=== PATIENT | female | born 1960 | race Caucasian/White ===

== ENCOUNTER → 2020-11-02 | Outpatient (CLI) | payer MEDICARE, OTHER ==
[~2020-11-02] MED LIST: ALLOPURINOL300 MG PO; AMLODIPINE BESYL5 MG PO; AMOX TR-K CLV1 EAC4 PO; ASPIRIN EC81 MG PO; CLOPIDOGREL75 MG PO; CYCLOBENZAPRINE5 MG PO; CYMBALTA60 MG PO; FENOFIBRATE160 MG PO; FLEXERIL 10 MG10 MG PO; GABAPENTIN300 MG PO; GLUCOPHAGE 500500 MG PO; HUMALOG100 UNIT/3 SQ; JARDIANCE10 MG PO; KENALOG 0.5% CR15 GM EXT; LIPITOR TAB 2020 MG PO; METOPROLOL TART50 MG PO; NITROGLYCERIN0.4 MG SL; PREDNISONE 10 M10 MG PO; TRULICITY1.5 MG/0.5 SQ; Voltaren Gel 1% TOP; ZESTRIL/PRINIVI10 MG PO
[2020-11-02 08:39] LABS: HEMOGLOBIN 17.4 gm/dl (12.3-15.3); RED BLOOD COUNT 5.46 M/UL (4.00-5.10); WHITE BLOOD COUNT 7.6 K/UL (4.5-11.0)
== END ==
LOC: LAB 08:13
PROVIDERS: Physician Assistant
DX: Z13.29 Encounter for screening for other suspected endocrine disorder (principal); E53.8 Deficiency of other specified B group vitamins; E55.9 Vitamin D deficiency, unspecified; E78.5 Hyperlipidemia, unspecified; E11.65 Type 2 diabetes mellitus with hyperglycemia; I10 Essential (primary) hypertension
CPT/HCPCS: 36415; 80053; 80061; 82043; 82570; 82607; 82746; 83036; 84439; 84443; 85025

== ENCOUNTER 2020-11-17 13:28 | Inpatient (IN) | payer MEDICARE, OTHER ==
[~2020-11-17] VITALS: Ht 167.6 cm; Wt 117.9 kg
[~2020-11-17 13:28] MED LIST changes: -ALLOPURINOL300 MG PO; -AMLODIPINE BESYL5 MG PO; -AMOX TR-K CLV1 EAC4 PO; -ASPIRIN EC81 MG PO; -CLOPIDOGREL75 MG PO; -CYCLOBENZAPRINE5 MG PO; -CYMBALTA60 MG PO; -FENOFIBRATE160 MG PO; -GABAPENTIN300 MG PO; -GLUCOPHAGE 500500 MG PO; -HUMALOG100 UNIT/3 SQ; -JARDIANCE10 MG PO; -KENALOG 0.5% CR15 GM EXT; -LIPITOR TAB 2020 MG PO; -METOPROLOL TART50 MG PO; -NITROGLYCERIN0.4 MG SL; -PREDNISONE 10 M10 MG PO; -TRULICITY1.5 MG/0.5 SQ; -ZESTRIL/PRINIVI10 MG PO
[2020-11-17 14:02] LABS: HEMOGLOBIN 17.7 gm/dl (12.3-15.3); RED BLOOD COUNT 5.64 M/UL (4.00-5.10); WHITE BLOOD COUNT 10.8 K/UL (4.5-11.0)
[2020-11-17] MEDS ORDERED: CYCLOBENZAPRINE5 MG PO (18:40)
[2020-11-17] MEDS ORDERED: HUMALOG100 UNIT/3 SQ (18:40)
[2020-11-17] MEDS ORDERED: TRULICITY1.5 MG/0.5 SQ (18:41)
[2020-11-17] MEDS ORDERED: ZESTRIL/PRINIVI10 MG PO (18:42)
[2020-11-17] MEDS ORDERED: AMOX TR-K CLV1 EAC4 PO (18:43)
[2020-11-17] MEDS ORDERED: FENOFIBRATE160 MG PO (18:44)
[2020-11-17] MEDS ORDERED: LIPITOR TAB 2020 MG PO (18:44)
[2020-11-17] MEDS ORDERED: KENALOG 0.5% CR15 GM EXT (18:45)
[2020-11-17] MEDS ORDERED: PREDNISONE 10 M10 MG PO (18:47)
[2020-11-17] MEDS ORDERED: CYMBALTA60 MG PO (18:47)
[2020-11-17] MEDS ORDERED: METOPROLOL TART50 MG PO (18:48)
[2020-11-17] MEDS ORDERED: GABAPENTIN300 MG PO ×2 (18:49)
[2020-11-17] MEDS ORDERED: ALLOPURINOL300 MG PO (18:49)
[2020-11-17] MEDS ORDERED: GLUCOPHAGE 500500 MG PO (18:50)
[2020-11-17] MEDS ORDERED: AMLODIPINE BESYL5 MG PO (18:50)
[2020-11-17] MEDS ORDERED: JARDIANCE10 MG PO (18:51)
[2020-11-18 07:28] LABS: RED BLOOD COUNT 5.1 M/UL (4.00-5.10); WHITE BLOOD COUNT 9.3 K/UL (4.5-11.0)
[2020-11-19 02:34] LABS: HEMOGLOBIN 15.6 gm/dl (12.3-15.3); RED BLOOD COUNT 4.99 M/UL (4.00-5.10); WHITE BLOOD COUNT 8.8 K/UL (4.5-11.0)
--- NOTE | 2020-11-19 10:34 | NUR ---
PATIENT STATES "I DO NOT CARE TO GO HOME ON OXYGEN". PATIENT DID NOT USE O2 AT HOME BEFORE BEING ADMITTED HERE. AT REST PATIENTS O2 SAT IS 91%. WHEN PATIENT AMBULATES HER SAT DOES DROP TO 88% FOR A BRIEF MINUTE AND THEN STABILIZES BACK TO 91%.
[2020-11-19] MEDS ORDERED: CLOPIDOGREL75 MG PO (12:18)
[2020-11-19] MEDS ORDERED: NITROGLYCERIN0.4 MG SL (12:18)
[2020-11-19] MEDS ORDERED: ASPIRIN EC81 MG PO (12:18)
== END 2020-11-19 14:00 | disposition home or self-care (01) | DRG 247 ==
LOC: ER1 13:28 → CDU 13:59 → CCU 15:12 → PROG CARE 11-18 19:24
PROVIDERS: Emergency Medicine; Family Medicine; ADMIT Internal Medicine Interventional Cardiology
PROC: 4A023N7 Measurement of Cardiac Sampling and Pressure, Left Heart, Percutaneous Approach (ICD-10-PCS; principal; 2020-11-17)
PROC: 027034Z Dilation of Coronary Artery, One Artery with Drug-eluting Intraluminal Device, Percutaneous Approach (ICD-10-PCS; 2020-11-17)
PROC: B211YZZ Fluoroscopy of Multiple Coronary Arteries using Other Contrast (ICD-10-PCS; 2020-11-17)
PROC: B215YZZ Fluoroscopy of Left Heart using Other Contrast (ICD-10-PCS; 2020-11-17)
PROC: B41FYZZ Fluoroscopy of Right Lower Extremity Arteries using Other Contrast (ICD-10-PCS; 2020-11-17)
DX: I21.09 ST elevation (STEMI) myocardial infarction involving other coronary artery of anterior wall (principal); J98.11 Atelectasis; Z68.41 Body mass index [BMI] 40.0-44.9, adult; G47.33 Obstructive sleep apnea (adult) (pediatric); Z20.822 Contact with and (suspected) exposure to COVID-19; E66.9 Obesity, unspecified; I10 Essential (primary) hypertension; E78.5 Hyperlipidemia, unspecified; M51.17 Intervertebral disc disorders with radiculopathy, lumbosacral region; N18.30 Chronic kidney disease, stage 3 unspecified; J30.2 Other seasonal allergic rhinitis; J44.9 Chronic obstructive pulmonary disease, unspecified; M15.9 Polyosteoarthritis, unspecified; F17.210 Nicotine dependence, cigarettes, uncomplicated; E11.22 Type 2 diabetes mellitus with diabetic chronic kidney disease; M10.9 Gout, unspecified; I12.9 Hypertensive chronic kidney disease with stage 1 through stage 4 chronic kidney disease, or unspecified chronic kidney disease; Z79.4 Long term (current) use of insulin; Z85.038 Personal history of other malignant neoplasm of large intestine; Z90.710 Acquired absence of both cervix and uterus; Z90.49 Acquired absence of other specified parts of digestive tract; Z82.49 Family history of ischemic heart disease and other diseases of the circulatory system; Z91.040 Latex allergy status
CPT/HCPCS: 36415; 71045; 80048; 80053; 80061; 82550; 82553; 82962; 83874; 84484; 85025; 85347; 85610; 85730; 87635; 93005; 94760; 96374; 96375; 99152; 99153; 99285; C1725; C1760; C1769; C1874; C1887; J0461; J1644; J2250; J2270; J2405; J3010; J7040; Q9965

== ENCOUNTER → 2020-11-29 | Outpatient (CLI) | payer MEDICARE, OTHER ==
[~2020-11-29] MED LIST changes: +ALLOPURINOL300 MG PO; +AMLODIPINE BESYL5 MG PO; +AMOX TR-K CLV1 EAC4 PO; +ASPIRIN EC81 MG PO; +CLOPIDOGREL75 MG PO; +CYCLOBENZAPRINE5 MG PO; +CYMBALTA60 MG PO; +FENOFIBRATE160 MG PO; +GABAPENTIN300 MG PO; +GLUCOPHAGE 500500 MG PO; +HUMALOG100 UNIT/3 SQ; +JARDIANCE10 MG PO; +KENALOG 0.5% CR15 GM EXT; +LIPITOR TAB 2020 MG PO; +METOPROLOL TART50 MG PO; +NITROGLYCERIN0.4 MG SL; +PREDNISONE 10 M10 MG PO; +TRULICITY1.5 MG/0.5 SQ; +ZESTRIL/PRINIVI10 MG PO
== END ==
LOC: KOH-I 13:43
DX: Z12.2 Encounter for screening for malignant neoplasm of respiratory organs (principal); F17.210 Nicotine dependence, cigarettes, uncomplicated; R91.1 Solitary pulmonary nodule
CPT/HCPCS: 71271

== ENCOUNTER → 2021-02-20 | Outpatient (CLI) | payer MEDICARE, OTHER | LOC: HEART 5 13:14 | DX: I25.10 Atherosclerotic heart disease of native coronary artery without angina pectoris (principal); I08.1 Rheumatic disorders of both mitral and tricuspid valves | CPT/HCPCS: 93306 ==

== ENCOUNTER → 2021-04-21 | Day surgery (SDC) | payer MEDICARE, OTHER ==
[2021-04-22 12:14] LABS: CREATININE, URINE 65.3 mg/dL (Not Estab.)
== END | disposition home or self-care (01) ==
LOC: LAB 07:42
PROVIDERS: Internal Medicine Nephrology
DX: N18.30 Chronic kidney disease, stage 3 unspecified (principal)
CPT/HCPCS: 36415; 80053; 82043; 82570

== ENCOUNTER → 2021-05-12 | Outpatient (CLI) | payer MEDICARE, OTHER ==
[2021-05-12 08:10] LABS: HEMOGLOBIN 16.2 gm/dl (12.3-15.3); RED BLOOD COUNT 5.07 M/UL (4.00-5.10)
[2021-05-13 11:14] LABS: CREATININE, URINE 75.2 mg/dL (Not Estab.)
== END ==
LOC: LAB 07:08
PROVIDERS: Physician Assistant
DX: E78.5 Hyperlipidemia, unspecified (principal); R53.83 Other fatigue; E53.8 Deficiency of other specified B group vitamins; E55.9 Vitamin D deficiency, unspecified; I10 Essential (primary) hypertension; E11.9 Type 2 diabetes mellitus without complications
CPT/HCPCS: 36415; 80053; 80061; 82043; 82570; 82607; 83036; 84439; 84443; 85025

== ENCOUNTER → 2021-05-27 | Outpatient (CLI) | payer MEDICARE, OTHER | LOC: KOH-I 13:00 | DX: R91.8 Other nonspecific abnormal finding of lung field (principal); K76.0 Fatty (change of) liver, not elsewhere classified | CPT/HCPCS: 71250 ==

== ENCOUNTER 2022-02-25 08:13 | Emergency (ER) | payer MEDICARE, OTHER ==
[~2022-02-25 08:13] MED LIST changes: +IBUPROFEN600 MG PO
[2022-02-25 09:31] LABS: HEMOGLOBIN 15.7 gm/dl (12.3-15.3); RED BLOOD COUNT 5.3 M/UL (4.00-5.10); WHITE BLOOD COUNT 10.8 K/UL (4.5-11.0)
== END 2022-02-25 10:37 | disposition home or self-care (01) ==
LOC: ER1 08:13
PROVIDERS: Nurse Practitioner
DX: I12.9 Hypertensive chronic kidney disease with stage 1 through stage 4 chronic kidney disease, or unspecified chronic kidney disease (principal); N18.9 Chronic kidney disease, unspecified; E11.22 Type 2 diabetes mellitus with diabetic chronic kidney disease; F17.210 Nicotine dependence, cigarettes, uncomplicated; Z91.040 Latex allergy status
CPT/HCPCS: 80053; 85025; 99283

== ENCOUNTER 2022-04-06 07:09 | Emergency (ER) | payer MEDICARE, OTHER ==
[2022-04-06] MEDS ORDERED: OMNICEF 300 MG300 MG PO (07:38)
[2022-04-06] MEDS ORDERED: BENADRYL ALLERG25 MG PO (07:40)
== END 2022-04-06 07:50 | disposition home or self-care (01) ==
LOC: ER1 07:09
DX: M79.89 Other specified soft tissue disorders (principal); J04.0 Acute laryngitis; E78.5 Hyperlipidemia, unspecified; I10 Essential (primary) hypertension; E11.9 Type 2 diabetes mellitus without complications; I25.2 Old myocardial infarction; Z90.49 Acquired absence of other specified parts of digestive tract; F17.200 Nicotine dependence, unspecified, uncomplicated
CPT/HCPCS: 99283